=== PATIENT | male | born 1980 | race Caucasian/White ===

== ENCOUNTER 2017-10-26 18:17 | Emergency (ER) | payer MEDICAID ==
--- NOTE | 2017-10-26 18:34 | EDPHY ---
HPI/HX/ROS/PE/MDM Narrative: CHIEF COMPLAINT: Alcohol withdrawal HPI: This patient is a 37 year old male with history of alcohol abuse. He states "I' m having alcohol withdrawal symptoms and just not feeling good at all". His last drink was earlier today, but he has been having fewer drinks than usual for the past two days. His mother at bedside notes that he ran out of his psychiatric medications including alprazolam and Adderall three days ago. The patient has been drinking daily for "a long time" but endorses interest in discontinuing his alcohol use. When I ask how we can help today in the emergency department, he says "I dunno, something - shouldn't I be monitored?". We discussed recovery options outside of the emergency department and the patient and his mother at bedside support this. His mother states he seems to have chronic suicidal ideation. The patient denies any current suicidal ideation. No fever, chest pain, shortness of breath, seizures, vomiting, or other associated symptoms. REVIEW OF SYSTEMS: Aside from elements discussed in the HPI, a comprehensive 10-point review of systems was reviewed and is negative. PMH: Alcohol abuse. SOCIAL HISTORY: Mother at bedside. PHYSICAL EXAM: General:Patient is alert, in no acute distress. ENT:Eyes are normal to inspection. ENT inspection normal. Neck: Normal inspection. Full range of motion. Respiratory:No respiratory distress. Breath sounds normal bilaterally. Cardiovascular: Regular rate and rhythm. Strong peripheral pulses. Normal cap refill. Abdomen:The abdomen is nontender to palpation. Back: Normal to inspection. No tenderness to palpation. Skin: Normal color. No rash. Warm and dry. Extremities: Normal appearance. Full range of motion. Neuro: Oriented x3. Normal motor function. Normal sensory function. ED Course: 37 y/o male presents with possible alcohol withdrawal. Patient is not tremulous or tachycardic at this time. I offered options including IV rehydration and labs , detox facility referral, and mental health evaluation. The patient agrees to IV and labs and is interested in going to the [facility] following this. He declines mental health evaluation in the emergency department. I will provide outpatient resources including [facility] and [facility]. Laboratory studies unremarkable. Reassessed patient. He declines any further interventions at this time and wishes to be discharged home. Plan to d/c in good condition with referral to the [facility] and [facility] as above. Return precautions discussed. He is comfortable with this plan. - Data Points Laboratory Results: Laboratory Results 10/26/17 18:55 10/26/17 18:55 10/26/17 10/26/17 18:55 18:55 WBC 8.65 10^3/uL 10^3/uL (3.80-9.50) RBC 5.31 10^6/uL 10^6/uL (4.40-6.38) Hgb 17.4 g/dL g/dL (13.7-17.5) Hct 48.6 % % (40.0-51.0) MCV 91.5 fL fL (81.5-99.8) MCH 32.8 pg pg (27.9-34.1) MCHC 35.8 g/dL g/dL (32.4-36.7) RDW 12.7 % % (11.5-15.2) Plt Count 255 10^3/uL 10^3/uL (150-400) MPV 9.0 fL fL (8.7-11.7) Neut % (Auto) 70.3 % % (39.3-74.2) Lymph % (Auto) 18.8 % % (15.0-45.0) [place] % (Auto) 7.9 % % (4.5-13.0) Eos % (Auto) 2.0 % % (0.6-7.6) Baso % (Auto) 0.7 % % (0.3-1.7) Nucleat RBC Rel Count 0.0 % % (0.0-0.2) Absolute Neuts (auto) 6.08 10^3/uL 10^3/uL (1.70-6.50) Absolute Lymphs (auto) 1.63 10^3/uL 10^3/uL (1.00-3.00) Absolute Monos (auto) 0.68 10^3/uL 10^3/uL (0.30-0.80) Absolute Eos (auto) 0.17 10^3/uL 10^3/uL (0.03-0.40) Absolute Basos (auto) 0.06 10^3/uL 10^3/uL (0.02-0.10) Absolute Nucleated RBC 0.00 10^3/uL 10^3/uL (0-0.01) Immature Gran % 0.3 % % (0.0-1.1) Immature Gran # 0.03 10^3/uL 10^3/uL (0.00-0.10) Sodium 140 mEq/L mEq/L (135-145) Potassium 3.7 mEq/L mEq/L (3.3-5.0) Chloride 103 mEq/L mEq/L (97-110) Carbon Dioxide 24 mEq/l mEq/l (22-31) Anion Gap 13 mEq/L mEq/L (8-16) BUN 13 mg/dL mg/dL (7-23) Creatinine 0.8 mg/dL mg/dL (0.7-1.3) Estimated GFR > 60 Glucose 131 mg/dL H mg/dL (70-100) Calcium 9.3 mg/dL mg/dL (8.5-10.4) Medications Given: Discontinued Medications Chlordiazepoxide HCl (Librium) 25 mg PO EDNOW ONE Stop: 10/26/17 18:49 Last Admin: 10/26/17 18:53 Dose: 25 mg Sodium Chloride (Ns) 1,000 mls @ 0 mls/hr IV EDNOW ONE; Wide Open PRN Reason: Protocol Stop: 10/26/17 18:50 Last Admin: 10/26/17 18:52 Dose: 1,000 mls General Time Seen by Provider: 10/26/17 18:32 Initial Vital Signs: Initial Vital Signs Temperature (C) 36.6 C 10/26/17 18:19 Heart Rate 83 10/26/17 18:19 Respiratory Rate 20 10/26/17 18:19 Blood Pressure 118/93 H 10/26/17 18:19 O2 Sat (%) 95 10/26/17 18:19 O2 Delivery Mode Room Air Allergies/Adverse Reactions: No Known Allergies Allergy (Unverified 10/26/17 18:19) Departure - Departure Disposition: Home, Routine, Self-Care Clinical Impression: Alcohol withdrawal Qualifiers: Complication of substance-induced condition: uncomplicated Qualified Code(s): F10.230 - Alcohol dependence with withdrawal, uncomplicated Condition: Good Instructions: Alcohol Withdrawal (ED) Additional Instructions: Follow up with the [facility] for assistance in alcohol detox and recovery. We have provided a referral to [facility] as well. Return to the emergency department for fever, vomiting, confusion, headache, abdominal pain or other worsening of condition. Referrals: [facility] 24 Hours [Outside] - As per Instructions [facility] [Outside] - As per Instructions Report Scribed for: Chris Parnell Report Scribed by: Enid Falk Date of Report: 10/26/17 Time of Report: 18:34 Physician Review and Approval Statement: Portions of this note were transcribed by an ED scribe. I personally performed the history, physical exam, and medical decision making; and confirm the accuracy of the information in the transcribed note.
[2017-10-26] MEDS ORDERED: chlordiazePOXIDE 25 MG CAP PO ONE (18:48)
[2017-10-26] MEDS ORDERED: NS 1,000 ML IV ONE (18:49)
[2017-10-26 19:13] LABS: PLATELET COUNT 255 10^3/uL (150-400)
[2017-10-26 19:53] VITALS: BP 154/100
== END 2017-10-26 20:22 | disposition home or self-care (01) ==
DX: F10.230 Alcohol dependence with withdrawal, uncomplicated (principal); E86.9 Volume depletion, unspecified

== ENCOUNTER 2017-10-27 16:53 | Emergency (ER) | payer MEDICAID ==
--- NOTE | 2017-10-27 17:11 | EDPHY ---
H & P Stated Complaint: ETOH/ LAST DRINK 2 HRS AGO/SENT FROM [facility] FOR LIBRIUM Time Seen by Provider: 10/27/17 17:11 - Personal History Current Tetanus Diphtheria and Acellular Pertussis (TDAP): Unsure - Medical/Surgical History Hx Asthma: No Hx Chronic Respiratory Disease: No Hx Diabetes: No Hx Cardiac Disease: No Hx Renal Disease: No Hx Cirrhosis: No Hx Alcoholism: Yes Hx HIV/AIDS: No Hx Splenectomy or Spleen Trauma: No Other PMH: ETOH abuse/METH USE - Social History Smoking Status: Never smoked Constitutional: Initial Vital Signs Temperature (C) 36.5 C 10/27/17 16:55 Heart Rate 98 10/27/17 16:55 Respiratory Rate 16 10/27/17 16:55 Blood Pressure 151/96 H 10/27/17 16:55 O2 Sat (%) 97 10/27/17 16:55 O2 Delivery Mode Room Air Allergies/Adverse Reactions: No Known Allergies Allergy (Verified 10/27/17 16:55) Home Medications: Medication Instructions Recorded NK [No Known Home Meds] 10/27/17 Medical Decision Making ED Course/Re-evaluation: CHIEF COMPLAINT: Alcohol intoxication. HISTORY OF PRESENT ILLNESS: This patient is a 37 year old male with history of alcohol abuse. His last drink was earlier today at 2pm, but he has been having fewer drinks than usual for the past three days. The patient has been drinking daily for "a long time" but endorses interest in discontinuing his alcohol use. He was evaluated in this emergency department yesterday evening and was referred to the [facility] at that time. He would like to go to the [facility] voluntarily and requests a prescription for Librium. He denies any co-ingestion. No injuries or trauma. REVIEW OF SYSTEMS: A 10 point review of systems was performed and is negative with the exception of the elements mentioned in the history of present illness. PHYSICAL EXAM: General Appearance: Alert, well hydrated, appropriate, and non-toxic appearing. Head: Atraumatic without scalp tenderness or obvious injury Eyes: Pupils equal, round, reactive to light and accommodation, EOMI, no trauma , no injection. Ears: Clear bilaterally, no perforation, normal landmarks Nose: Atraumatic, no rhinorrhea, clear. Throat: There is no erythema or exudates, no lesions, normal tonsils, mucus membranes moist. Neck: Supple, 2+ carotid upstroke, nontender, no lymphadenopathy. Respiratory: No retractions, no distress, no wheezes, and no accessory muscle use. Lungs are clear to auscultation bilaterally. Cardiovascular: Regular rate and rhythm, no murmurs, rubs, or gallops. Bilateral carotid, radial, dorsalis pedis, and posterior tibial pulses intact. Good capillary refill all extremities. Gastrointestinal: Abdomen is soft, nontender, non-distended, no masses, no rebound, no guarding, no peritoneal signs. Musculoskeletal: Normal active ROM of all extremities, atraumatic. Neurological: Alert, appropriate, and interactive. The patient has normal DTRs and non-focal cranial nerves, motor, sensory, and cerebellar exam. Skin: No rashes, good turgor, no nodules on palpation. PAST MEDICAL HISTORY: Alcohol abuse. PAST SURGICAL HISTORY: Noncontributory. SOCIAL HISTORY: Mother at bedside. DIFFERENTIAL DIAGNOSIS: Includes but not limited to alcohol withdrawal, alcohol intoxication, polysubstance abuse. MEDICAL DECISION [id number] y/o male presents on his way to the [facility] with possible alcohol withdrawal. Patient requests a prescription for Librium. We will provide this. At this point , the patient is walking the department freely and is clinically sober. We're discharging the patient to the [facility] in stable condition. His mother will drive him there. - Data Points Medications Given: Discontinued Medications Chlordiazepoxide (Librium 25 Mg Prepack#6) 1 btl TAKEHOME EDNOW ONE Stop: 10/27/17 17:17 Last Admin: 10/27/17 17:19 Dose: 1 btl Departure - Departure Disposition: Home, Routine, Self-Care Clinical Impression: Alcohol withdrawal Qualifiers: Complication of substance-induced condition: uncomplicated Qualified Code(s): F10.230 - Alcohol dependence with withdrawal, uncomplicated Condition: Good Instructions: Alcohol Withdrawal (ED) Additional Instructions: Follow up with the [facility] for assistance in alcohol detox and recovery. Bring your Librium with you. Return to the emergency department for fever, vomiting, confusion, headache, abdominal pain or other worsening of condition. Referrals: [facility] Detox 24 Hours [Outside] - As per Instructions Report Scribed for: Chadwick Bolanos Report Scribed by: Enid Falk Date of Report: 10/27/17 Time of Report: 18:44
[2017-10-27] MEDS ORDERED: CHLORDIAZEPOXIDE 25MG PREPK#6 BTL TAKEHOME ONE (17:16)
[2017-10-27 17:24] VITALS: BP 145/98
== END 2017-10-27 17:24 | disposition home or self-care (01) ==
DX: F10.230 Alcohol dependence with withdrawal, uncomplicated (principal)